=== PATIENT | female | born 1950 | race Caucasian/White ===

== ENCOUNTER 2016-09-10 20:59 | Emergency (ER) | payer BC ==
[~2016-09-10] VITALS: Ht 165.1 cm; Wt 68.0 kg
[2016-09-10 21:04] VITALS: Ht 165.1 cm; Wt 68.0 kg
[2016-09-10] MEDS ORDERED: IBUPROFEN 600 MG TAB PO ONE (21:30)
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
[2016-09-10] MEDS ORDERED: IBUP400T22 PO (22:56)
[2016-09-10] MEDS ORDERED: CYCL-319 PO (22:56)
--- NOTE | 2016-09-10 23:09 | RADRPT ---
PROCEDURE: XR Cervical Spine. CLINICAL INDICATION: Trauma, pain. TECHNIQUE: Three views of the cervical spine. COMPARISON: None. FINDINGS: There is minimal reversal cervical lordosis. No spondylolisthesis is seen. The vertebral body heig hts are maintained. No acute fracture or subluxation is identified. The prevertebral soft tissues are normal. Mild to moderate degenerative disk disease is noted at C5-C6. The visualized aerodiges tive tract is normal. IMPRESSION: 1. No acute fracture or subluxation of the cervical spine. 2. Minimal reversal of the cervical lordosis. 3. Mild to moderate degenerative disk disease at C5-C6. RPTAT: HTAR .Walt Carrasquillo MD, Date Time Electronically viewed and signed by .Walt Carrasquillo MD, on 09/10/2016 23:09 .R/
--- NOTE | 2016-09-10 23:11 | RADRPT ---
PROCEDURE: XR Lumbar Spine. CLINICAL INDICATION: Back pain. TECHNIQUE: Complete lumbar spine study including AP, lateral, obliques and coned L5-S1 views was p erformed. COMPARISON: No similar studies are submitted for comparison. FINDINGS: Vertebral body stature and alignment maintained. There is no evidence of fracture or subluxation. N o destructive osseous lesions are seen. IMPRESSION: No evidence of compression fracture. RPTAT: HIKT .Randall Love MD, MD Date Time Electronically viewed and signed by .Randall Love MD, on 09/10/2016 23:10 .T/
== END 2016-09-10 23:29 | disposition home or self-care (01) ==
LOC: FTE 20:59
DX: S16.1XXA Strain of muscle, fascia and tendon at neck level, initial encounter (principal); S39.012A Strain of muscle, fascia and tendon of lower back, initial encounter; V49.40XA Driver injured in collision with unspecified motor vehicles in traffic accident, initial encounter
CPT/HCPCS: 72040; 72100

== ENCOUNTER → 2017-06-06 | Outpatient (CLI) | END | disposition home or self-care (01) ==

== ENCOUNTER → 2017-08-29 | Outpatient (CLI) | END | disposition home or self-care (01) ==